=== PATIENT | male | born 1975 | race Caucasian/White ===

== ENCOUNTER 2017-09-26 21:31 | Emergency (ER) | payer BC ==
[2017-09-26] MEDS ORDERED: Morphine 10 MG/ML VIAL ONE (21:54)
== END 2017-09-26 22:22 | disposition home or self-care (01) ==
LOC: SCSER 21:31
DX: M54.5 Low back pain (principal); F17.220 Nicotine dependence, chewing tobacco, uncomplicated
CPT/HCPCS: 96372; J2270

== ENCOUNTER 2017-12-31 01:42 | Emergency (ER) | payer BC ==
[2017-12-31] MEDS ORDERED: Ketorolac Tromethamine 30 MG/ML VIAL ONE (02:00)
--- NOTE | 2017-12-31 08:05 | RAD ---
LEFT SHOULDER THREE VIEWS: History: Fall. Trauma. Injury. Comparison: None. FINDINGS: There is a linear lucency through the greater tuberosity. No other abnormality of the shoulder is lacey reciated. IMPRESSION: 1. Linear lucency through the greater tuberosity may represent a nondisplaced fracture. Recommend cor relation with focal tenderness. 2. 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 3. Intact ribs. POS: [facility]
== END 2017-12-31 02:50 | disposition home or self-care (01) ==
LOC: SCSER 01:42
DX: S33.5XXA Sprain of ligaments of lumbar spine, initial encounter (principal); S40.012A Contusion of left shoulder, initial encounter; F17.220 Nicotine dependence, chewing tobacco, uncomplicated; W19.XXXA Unspecified fall, initial encounter
CPT/HCPCS: 96372; J1885

== ENCOUNTER 2020-07-05 10:42 | Outpatient (CLI) | payer OTHER ==
--- NOTE | 2020-07-05 11:16 | RAD ---
EXAM: 2 views of the left hip HISTORY: Left hip pain COMPARISON: None FINDINGS: 2 views of the left hip shows no evidence of acute fracture or dislocation. No degenerative changes are seen. No soft tissue swelling is present. A spinal stimulation device is partially visualized. IMPRESSION: No evidence of acute osseous abnormality.
--- NOTE | 2020-07-05 11:17 | RAD ---
EXAM: 2 views of the right shoulder HISTORY: Shoulder pain COMPARISON: None FINDINGS: There is no evidence of acute fracture or dislocation. No degenerative changes are seen. Th e visualized thorax is unremarkable. IMPRESSION: No evidence of acute osseous abnormality.
--- NOTE | 2020-07-05 11:20 | RAD ---
EXAM: 2 views of the lumbosacral spine HISTORY: Low back pain COMPARISON: None FINDINGS: 2 views of the lumbosacral spine shows normal height of the vertebral bodies without fract ure or subluxation. There is grade 1 masses of L4 and L5 with small surrounding osteophytes. Moderate to severe bilateral posterior facet arthrosis is seen in the lower lumbosacral spine. A gene rator is seen with its leads extending towards the posterior facets. One of the leads appears discontinuous. The sacroiliac joints are unremarkable. IMPRESSION: Degenerative changes of the lower lumbar spine as above
== END 2020-07-05 10:43 | disposition home or self-care (01) ==
LOC: BICRAD 10:42
PROVIDERS: ATTEND Internal Medicine
DX: Z02.71 Encounter for disability determination (principal); M47.816 Spondylosis without myelopathy or radiculopathy, lumbar region
CPT/HCPCS: 72100